=== PATIENT | female | born 2000 | race African-American/Black ===

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

== ENCOUNTER 2023-01-31 21:59 | Inpatient (IN) | payer MEDICAID ==
[~2023-01-31] VITALS: Ht 162.6 cm; Wt 97.1 kg
[2023-01-31] MEDS ORDERED: PNV1TABL59 PO (22:23)
[2023-01-31] MEDS ORDERED: RHO(D) IMMUNE GLOBULIN 300 MCG/SYR IM NR (22:30)
[2023-01-31] MEDS ORDERED: MISOPROSTOL 100MCG TABLET VG SCH (22:30)
[2023-01-31] MEDS ORDERED: OXYTOCIN 30 UNITS/500ML NS PMX 500 ML IV SCH (22:30)
[2023-01-31] MEDS ORDERED: CARBOPROST TROMETHAMINE 250 MCG/ML AMPUL IM PRN (22:30)
[2023-01-31] MEDS ORDERED: LACTATED RINGERS 1,000 ML IV SCH (22:30)
[2023-01-31] MEDS ORDERED: METHYLERGONOVINE MALEATE 0.2 MG/ML IM PRN (22:30)
[2023-01-31] MEDS ORDERED: NALOXONE HCL 0.4 MG/ML 1ML VIAL IM PRN (22:30)
[2023-01-31] MEDS: LACTATED RINGERS 1,000 ML IV SCH (23:19)
[2023-02-01 00:04] LABS: BASOPHILS % 0.4 % (0.0-2.0); CLARITY URINE CLEAR (CLEAR); COLOR URINE YELLOW (YELLOW); EOSINOPHILS % 2.2 % (0.0-5.0); HEMATOCRIT. 27.8 % (36.0-48.0); HEMOGLOBIN. 8.7 g/dL (12.0-16.0); KETONES URINE NEGATIVE (NEGATIVE); LEUKOCYTE ESTERASE URINE NEGATIVE (NEGATIVE); MEAN CORPUSCULAR HEMOGLOBIN 22.4 pg (28.0-32.0); MEAN CORPUSCULAR VOLUME 71.1 fL (81.0-99.0); MEAN PLATELET VOLUME 10.1 fl (7.4-10.4); MONOCYTES % 8.1 % (2.0-8.0); NEUTROPHILS % 71.3 % (40.0-76.0); NITRITE URINE NEGATIVE (NEGATIVE); OCCULT BLOOD URINE NEGATIVE (NEGATIVE); PLATELET 223 x1000/uL (130-400); PROTEIN URINE TRACE (NEGATIVE); RED BLOOD CELL COUNT 3.91 mill/uL (4.2-5.4); SPECIFIC GRAVITY URINE 1.012 (1.005-1.030); UROBILINOGEN URINE 0.2 E.U./dL (0.2-1.0)
[2023-02-01 00:21] LABS: INR 0.9; PARTIAL THROMBOPLASTIN TIME 25.2 sec (23.4-31.0); PROTHROMBIN TIME 9.8 sec (9.6-11.0)
[2023-02-01 01:00] LABS: HEPATITIS B SURFACE ANTIGEN NEGATIVE
[2023-02-01 01:10] LABS: *AMPHETAMINES SCREEN URINE NEGATIVE (NEGATIVE); *BARBITURATES SCREEN URINE NEGATIVE (NEGATIVE); *BENZODIAZEPINES SCREEN URINE NEGATIVE (NEGATIVE); *COCAINE SCREEN URINE NEGATIVE (NEGATIVE); CANNABINOID URINE SCREEN NEGATIVE (NEGATIVE); METHADONE URINE SCREEN NEGATIVE (NEGATIVE); OPIATES URINE SCREEN NEGATIVE (NEGATIVE); PHENCYCLIDINE URINE SCREEN NEGATIVE (NEGATIVE)
[2023-02-01] MEDS ORDERED: CLINDAMYCIN IN 0.9 % SOD CHLOR 50 ML IV ONE (07:00)
[2023-02-01] MEDS ORDERED: MORPHINE SULFATE/PF 1MG/ML 10ML AMP ONE (07:17)
[2023-02-01] MEDS ORDERED: DEXAMETHASONE 4MG/ML 1ML VIAL ONE (07:30)
[2023-02-01] MEDS ORDERED: ONDANSETRON HCL 4MG/2ML INJ ONE (07:30)
[2023-02-01] MEDS ORDERED: PHENYLEPHRINE HCL 10 MG/ML 1ML (IV VIAL) IV ONE (07:31)
[2023-02-01] MEDS ORDERED: OXYTOCIN 10 UNITS/ML 1ML ONE (07:41)
[2023-02-01] MEDS ORDERED: EPHEDRINE SULFATE 50MG/ML VIAL ONE (07:47)
[2023-02-01] MEDS: LACTATED RINGERS 1,000 ML IV SCH ×3 (08:12→23:16)
[2023-02-01] MEDS ORDERED: KETOROLAC 60MG/2ML VIAL IM ONE (09:46)
[2023-02-01] MEDS ORDERED: CLINDAMYCIN 900 MG in DEXTROSE 5% WATER 50 ML IV ONE (10:00)
[2023-02-01] MEDS ORDERED: NALOXONE HCL 0.4 MG/ML 1ML VIAL IV PRN (10:15)
[2023-02-01] MEDS ORDERED: FENTANYL CITRATE/PF 50MCG/ML 2ML VIAL IV PRN (10:15)
[2023-02-01] MEDS ORDERED: MORPHINE SULFATE 2 MG/ML CPJ (NOT FOR IM USE) IV PRN (10:15)
[2023-02-01] MEDS ORDERED: METOCLOPRAMIDE HCL 10MG/2ML VIAL ONE (10:16)
[2023-02-01] MEDS ORDERED: MIDAZOLAM HCL 2 MG/2 ML VIAL ONE (10:26)
[2023-02-01] MEDS ORDERED: CLINDAMYCIN IN 0.9 % SOD CHLOR 50 ML IV NR (10:30)
[2023-02-01 12:30] VITALS: BP 136/71
[2023-02-01 13:30] VITALS: BP 130/75
[2023-02-01 16:00] VITALS: BP 125/71
[2023-02-01 19:30] VITALS: BP 125/65
[2023-02-01] MEDS: KETOROLAC 30MG/ML VIAL IV PRN (21:12)
[2023-02-01] MEDS ORDERED: IBUPROFEN 400MG TABLET PO PRN (21:30)
[2023-02-01] MEDS ORDERED: BISACODYL 10MG SUPP PR PRN (21:30)
[2023-02-01] MEDS ORDERED: LANOLIN OINT 7GM TUBE TOP PRN (21:30)
[2023-02-01] MEDS ORDERED: CLINDAMYCIN 900 MG in DEXTROSE 5% WATER 50 ML IV SCH (23:00)
[2023-02-01] MEDS: CLINDAMYCIN 600MG PREMIX 50 ML IV SCH (23:33)
[2023-02-02] VITALS: BP 120/64
[2023-02-02] MEDS: KETOROLAC 30MG/ML VIAL IV PRN (03:46)
[2023-02-02 04:00] VITALS: BP 124/69
[2023-02-02] MEDS: CLINDAMYCIN 600MG PREMIX 50 ML IV SCH (07:03)
[2023-02-02 07:24] LABS: BASOPHILS % 0.2 % (0.0-2.0); EOSINOPHILS % 0.1 % (0.0-5.0); HEMATOCRIT. 25.2 % (36.0-48.0); HEMOGLOBIN. 7.9 g/dL (12.0-16.0); MEAN CORPUSCULAR HEMOGLOBIN 22.3 pg (28.0-32.0); MEAN CORPUSCULAR VOLUME 71.3 fL (81.0-99.0); MEAN PLATELET VOLUME 10.2 fl (7.4-10.4); MONOCYTES % 8.4 % (2.0-8.0); NEUTROPHILS % 79.3 % (40.0-76.0); PLATELET 221 x1000/uL (130-400); RED BLOOD CELL COUNT 3.54 mill/uL (4.2-5.4); RED CELL DISTRIBUTION WIDTH 17.9 % (11.6-14.6)
[2023-02-02 08:00] VITALS: BP 120/74
[2023-02-02] MEDS: PRENATAL VIT/FE FUMARATE/FA TABLET PO SCH (11:34)
[2023-02-02] MEDS: FERROUS SULFATE 325MG TABLET PO SCH ×3 (11:34→18:20)
[2023-02-02] MEDS: MAGNESIUM/ALUMINUM HYDROXIDE/SIMETHICONE 30ML UDC PO SCH ×3 (11:36→18:18)
[2023-02-02] MEDS: SIMETHICONE 80MG TABLET CHEW PO SCH ×3 (11:37→18:19)
[2023-02-02 12:00] VITALS: BP 116/69
[2023-02-02] MEDS: IBUPROFEN 800MG TABLET PO PRN ×2 (12:00→18:28)
[2023-02-02 16:00] VITALS: BP 133/66
[2023-02-02 19:20] VITALS: BP 139/81
[2023-02-02] MEDS: DOCUSATE SODIUM 100MG CAPSULE PO SCH (21:05)
[2023-02-02] MEDS ORDERED: HYDROCODONE/ACETAMINOPHEN 5/325MG TABLET PO PRN (21:45)
[2023-02-03 04:00] VITALS: BP 126/79
[2023-02-03] MEDS: IBUPROFEN 800MG TABLET PO PRN ×2 (04:09→16:38)
[2023-02-03 08:00] VITALS: BP 122/76
[2023-02-03] MEDS: MAGNESIUM/ALUMINUM HYDROXIDE/SIMETHICONE 30ML UDC PO SCH ×4 (08:04→21:26)
[2023-02-03] MEDS: FERROUS SULFATE 325MG TABLET PO SCH ×3 (08:06→17:30)
[2023-02-03] MEDS: PRENATAL VIT/FE FUMARATE/FA TABLET PO SCH (08:06)
[2023-02-03] MEDS: SIMETHICONE 80MG TABLET CHEW PO SCH ×4 (08:08→21:26)
[2023-02-03 12:00] VITALS: BP 140/87
[2023-02-03 15:58] VITALS: BP 119/70
[2023-02-03 20:00] VITALS: BP 127/52
[2023-02-03] MEDS: DOCUSATE SODIUM 100MG CAPSULE PO SCH (21:26)
[2023-02-04 03:45] VITALS: BP 122/71
[2023-02-04 07:20] LABS: BASOPHILS % 0.4 % (0.0-2.0); EOSINOPHILS % 3.2 % (0.0-5.0); HEMATOCRIT. 25.3 % (36.0-48.0); LYMPHOCYTES % 15.1 % (20.0-50.0); MEAN CORPUSCULAR HEMOGLOBIN 22.5 pg (28.0-32.0); MEAN PLATELET VOLUME 9.5 fl (7.4-10.4); MONOCYTES % 7.4 % (2.0-8.0); NEUTROPHILS % 73.9 % (40.0-76.0); PLATELET 232 x1000/uL (130-400); RED BLOOD CELL COUNT 3.56 mill/uL (4.2-5.4)
[2023-02-04 08:10] VITALS: BP 125/81
[2023-02-04] MEDS: PRENATAL VIT/FE FUMARATE/FA TABLET PO SCH (08:44)
[2023-02-04] MEDS: MAGNESIUM/ALUMINUM HYDROXIDE/SIMETHICONE 30ML UDC PO SCH ×2 (08:44→21:01)
[2023-02-04] MEDS: FERROUS SULFATE 325MG TABLET PO SCH (08:44)
[2023-02-04] MEDS: SIMETHICONE 80MG TABLET CHEW PO SCH ×2 (08:44→21:00)
[2023-02-04] MEDS: IBUPROFEN 800MG TABLET PO PRN (08:44)
[2023-02-04 16:00] VITALS: BP 128/79
[2023-02-04 20:00] VITALS: BP 115/73
[2023-02-04] MEDS: DOCUSATE SODIUM 100MG CAPSULE PO SCH (21:00)
[2023-02-05 04:00] VITALS: BP 127/60
[2023-02-05 08:00] VITALS: BP 124/81
[2023-02-05] MEDS: SIMETHICONE 80MG TABLET CHEW PO SCH (08:27)
[2023-02-05] MEDS: MAGNESIUM/ALUMINUM HYDROXIDE/SIMETHICONE 30ML UDC PO SCH (08:27)
[2023-02-05] MEDS: FERROUS SULFATE 325MG TABLET PO SCH (08:27)
[2023-02-05] MEDS: PRENATAL VIT/FE FUMARATE/FA TABLET PO SCH (08:27)
[2023-02-05] MEDS: IBUPROFEN 800MG TABLET PO PRN (08:28)
== END 2023-02-05 11:50 | disposition home or self-care (01) | DRG 540 ==
LOC: OBSVTOIN 21:59 → 8 EST LDRP 21:59 → 8EST 02-01 12:10
PROVIDERS: ADMIT Obstetrics & Gynecology; ATTEND Obstetrics & Gynecology
PROC: 10D00Z1 Extraction of Products of Conception, Low, Open Approach (ICD-10-PCS; principal; 2023-02-01)
DX: O30.003 Twin pregnancy, unspecified number of placenta and unspecified number of amniotic sacs, third trimester (principal); O36.5930 Maternal care for other known or suspected poor fetal growth, third trimester, not applicable or unspecified; O32.1XX2 Maternal care for breech presentation, fetus 2; Z20.822 Contact with and (suspected) exposure to COVID-19; O90.81 Anemia of the puerperium; Z37.0 Single live birth; Z3A.37 37 weeks gestation of pregnancy; Z88.0 Allergy status to penicillin
CPT/HCPCS: 36415; 76815; 80305; 81003; 85025; 86592; 86703; 86762; 86850; 86900; 86920; 87340; 87426; 88307; J1100; J1885; J2210; J2250; J2274; J2370; J2405; J2765; J3490; A4315